=== PATIENT | male | born 1970 | race Caucasian/White ===

== ENCOUNTER 2016-09-16 08:29 | Emergency (ER) | payer OTHER ==
[2016-09-16 08:49] VITALS: BP 129/84
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
== END 2016-09-16 09:52 | disposition home or self-care (01) ==
LOC: ED 08:29
DX: S01.01XD Laceration without foreign body of scalp, subsequent encounter (principal); F17.210 Nicotine dependence, cigarettes, uncomplicated; Z71.6 Tobacco abuse counseling; V89.2XXD Person injured in unspecified motor-vehicle accident, traffic, subsequent encounter
CPT/HCPCS: 99281